=== PATIENT | male | born 1980 | race African-American/Black ===

== ENCOUNTER 2025-02-07 14:14 | Emergency (ER) | payer OTHER, SELFPAY ==
[~2025-02-07] VITALS: Ht 170.2 cm; Wt 72.4 kg
[2025-02-07] MEDS ORDERED: IBUP200C25 PO (14:27)
[2025-02-07] MEDS: LIDOCAINE 2% MDV 20 ML VIAL SC ONE (15:25)
[2025-02-07 16:03] VITALS: BP 134/87; TEMP 97.5; O2SAT 100
[2025-02-07] MEDS: TETANUS/DIPHTH/ACEL. PERTUSSIS 0.5 ML SYR IM.IMMUN ONE (16:03)
== END 2025-02-07 16:23 | disposition home or self-care (01) ==
LOC: M ED 14:14
DX: S61.210A Laceration without foreign body of right index finger without damage to nail, initial encounter (principal); W26.0XXA Contact with knife, initial encounter; Y92.9 Unspecified place or not applicable; Y93.9 Activity, unspecified; Y99.9 Unspecified external cause status; F17.200 Nicotine dependence, unspecified, uncomplicated; Z23 Encounter for immunization